=== PATIENT | female | born 1975 | race Caucasian/White ===

== ENCOUNTER 2018-04-21 00:06 | Emergency (ER) | payer OTHER ==
[2018-04-21] MEDS ORDERED: KETOROLAC TROMETHAMINE INJ/PF 30 MG/1 ML SDV IV ONE (00:45)
[2018-04-21] MEDS ORDERED: ONDANSETRON 4 MG TAB.RAPDIS PO ONE (00:45)
--- NOTE | 2018-04-21 00:47 | ER Document Report ---
ED General - General Chief Complaint: Low Back Pain Stated Complaint: URINARY SYMPTONS Time Seen by Provider: 04/21/18 00:37 Notes: Patient is a 43-year-old female who comes emergency department for chief complaint of flank pain. She states that she has also had chills and sweats, symptoms started about 4-5 days ago and have worsened, now she has pain on both sides of her back. She states this evening she started getting nauseated. She denies vomiting, abdominal pain, dysuria, or any urinary symptoms. She states she has had kidney infections in the past and this feels similar. She states initially she thought it was because she had lifted a keg at work. She denies numbness or incontinence. Only medication she takes his oxybutynin. Drinks occasionally. No surgeries. No medical history reported. Denies history of kidney stones. TRAVEL OUTSIDE OF THE [place] IN LAST 30 DAYS: No - Related Data Allergies/Adverse Reactions: Sulfa (Sulfonamide Antibiotics) Allergy (Verified 04/17/15 11:41) Past Medical History - General Information source: Patient - Social History Smoking Status: Never Smoker Frequency of alcohol use: Occasional Drug Abuse: None Lives with: Family Family History: Reviewed & Not Pertinent Surgical Hx: Negative - Immunizations Hx Diphtheria, Pertussis, Tetanus Vaccination: Yes Review of Systems - Review of Systems Constitutional: No symptoms reported EENT: No symptoms reported Cardiovascular: No symptoms reported Respiratory: No symptoms reported Gastrointestinal: See HPI Genitourinary: See HPI Female Genitourinary: No symptoms reported Musculoskeletal: See HPI Skin: No symptoms reported Hematologic/Lymphatic: No symptoms reported Neurological/Psychological: No symptoms reported Physical Exam - Vital signs Vitals: Temp Pulse Resp BP Pulse Ox 97.9 F 101 H 16 167/93 H 98 04/21/18 00:11 04/21/18 00:11 04/21/18 00:11 04/21/18 00:11 04/21/18 00:11 - Notes Notes: GENERAL: Alert, interacts well. No acute distress. HEAD: Normocephalic, atraumatic. EYES: Pupils equal, round, and reactive to light. Extraocular movements intact. ENT: Oral mucosa moist, tongue midline. NECK: Full range of motion. Supple. Trachea midline. LUNGS: Clear to auscultation bilaterally, no wheezes, rales, or rhonchi. No respiratory distress. HEART: Regular rate and rhythm. No murmur ABDOMEN: Soft, non-tender. Non-distended. Bowel sounds present in all 4 quadrants. EXTREMITIES: Moves all 4 extremities spontaneously. No edema, normal radial and dorsalis pedis pulses bilaterally. No cyanosis. BACK: There is some generalized tenderness in the mid to lower back worse on the left, no midline tenderness, no signs of trauma, no saddle anesthesia, normal distal neurovascular exam. NEUROLOGICAL: Alert and oriented x3. Normal speech. [cranial nerves II through XII grossly intact]. PSYCH: Normal affect, normal mood. SKIN: Warm, dry, normal turgor. No rashes or lesions noted. Course - Re-evaluation Re-evalutation: Examination with possible musculoskeletal source of pain but not definite based on patient's descriptions. She states she thought she had a fever and had chills, felt nauseated. Abdomen is very soft and benign. CBC unremarkable, chemistry shows mild LFT elevation with alk phos elevation, no significant elevation of bilirubin. Discussed with patient, decision was made to perform ultrasound to rule out ductal or gallbladder source of flank pain, ultrasound of the kidneys also performed. Hepatic steatosis noted but no other abnormalities noted. Urinalysis unremarkable. On reevaluation with Toradol and IV fluids patient's symptoms have completely resolved. Based on her workup, examination, I do have low suspicion of obstructive pathology or infectious source. Appears to be musculoskeletal. Patient requesting for the same medication she was given here, given Toradol, Flexeril, work release, discussed return precautions, discussed hepatic steatosis and follow-up. Patient states understanding and agreement. - Vital Signs Vital signs: Temp Pulse Resp BP Pulse Ox 98 F 78 20 158/86 H 98 04/21/18 04:10 04/21/18 04:10 04/21/18 04:10 04/21/18 04:10 04/21/18 04:10 - Laboratory Result Diagrams: 04/21/18 01:15 04/21/18 01:15 Laboratory results interpreted by me: 04/21/18 04/21/18 04/21/18 01:15 01:15 02:15 Lymphocytes % 12.8 L Direct Bilirubin 0.5 H AST 74 H ALT 104 H Alkaline Phosphatase 173 H Urine Blood SMALL H Ur Leukocyte Esterase TRACE H Discharge - Discharge Clinical Impression: Flank pain Condition: Stable Disposition: HOME, SELF-CARE Additional Instructions: Your ultrasound shows hepatic steatosis, fatty infiltration of the liver, as we discussed but no emergent findings. Your remaining workup shows mildly elevated liver enzymes but is otherwise unremarkable. Your examination and workup are most consistent with muscular strain and spasm of your back, apply heat to the area, take Toradol for pain/inflammation, take the muscle relaxer as prescribed (can be sedating), and rest your back. Follow-up with primary care for additional evaluation and treatment. I recommend using Tylenol and alcohol with caution because of your elevated liver enzymes, this needs to be rechecked and managed by primary care as well. Return if you worsen including spiking fever, vomiting, severe pain, numbness, or any other concerning or worsening symptoms. Prescriptions: Ketorolac Tromethamine [Toradol 10 mg Tablet] 10 mg PO Q8HP PRN #24 tablet PRN Reason: Cyclobenzaprine HCl [Flexeril 5 mg Tablet] 1 - 2 tab PO TID PRN #15 tablet PRN Reason: Forms: Return to Work Referrals: JOHNATHAN JOHNSON PA [Primary Care Provider] - Follow up as needed
[2018-04-21 01:31] LABS: ABSOLUTE LYMPHOCYTES (AUTO) 1.2 10^3/uL (0.5-4.7); ABSOLUTE MONOCYTES (AUTO) 0.8 10^3/uL (0.1-1.4); ABSOLUTE NEUT (AUTO) 7.6 10^3/uL (1.7-8.2); BASOPHILS % (AUTO) 0.5 % (0-2); EOSINOPHILS % (AUTO) 0.3 % (0-6); HEMATOCRIT 36.2 % (36.0-47.0); HEMOGLOBIN 12.9 g/dL (12.0-15.5); LYMPHOCYTES % (AUTO) 12.8 % (13-45); MEAN CORPUSCULAR HEMOGLOBIN 32.8 pg (27.0-33.4); MEAN CORPUSCULAR HGB CONC 35.8 g/dL (32.0-36.0); MEAN CORPUSCULAR VOLUME 92 fl (80-97); MONOCYTES % (AUTO) 8.7 % (3-13); PLATELET COUNT 289 10^3/uL (150-450); RED BLOOD COUNT 3.94 10^6/uL (3.72-5.28); RED CELL DISTRIBUTION WIDTH 13.7 % (11.5-14.0); SEGMENTED NEUTROPHILS % (AUTO) 77.7 % (42-78); TOTAL CELLS COUNTED % (AUTO) 100 %; WHITE BLOOD COUNT 9.8 10^3/uL (4.0-10.5)
[2018-04-21 01:46] LABS: ALANINE AMINOTRANSFERASE 104 U/L (9-52); ALBUMIN 3.6 g/dL (3.5-5.0); ALKALINE PHOSPHATASE 173 U/L (38-126); ANION GAP 13 (5-19); ASPARTATE AMINO TRANSFERASE 74 U/L (14-36); BILIRUBIN,DIRECT 0.5 mg/dL (0.0-0.4); BILIRUBIN,TOTAL 0.7 mg/dL (0.2-1.3); BLOOD UREA NITROGEN 10 mg/dL (7-20); CALCIUM 9.1 mg/dL (8.4-10.2); CARBON DIOXIDE 23 mmol/L (22-30); CHLORIDE 103 mmol/L (98-107); GLUCOSE 107 mg/dL (75-110); SODIUM 138.7 mmol/L (137-145); TOTAL PROTEIN 6.6 g/dL (6.3-8.2)
[2018-04-21 02:41] LABS: APPEARANCE,URINE CLEAR; BILIRUBIN,URINE NEGATIVE (NEGATIVE); COLOR,URINE STRAW; GLUCOSE, URINE NEGATIVE (NEGATIVE); KETONES,URINE NEGATIVE (NEGATIVE); LEUKOCYTE ESTERASE,URINE TRACE (NEGATIVE); NITRITE,URINE NEGATIVE (NEGATIVE); PROTEIN,URINE NEGATIVE (NEGATIVE); URINE SPECIFIC GRAVITY 1.003; UROBILINOGEN,URINE NEGATIVE mg/dL (<2.0)
--- NOTE | 2018-04-21 03:16 | RADIOLOGY REPORT (SQ) ---
EXAM DESCRIPTION: US RETROPERITONEUM LIMITED COMPLETED DATE/TME: 04/21/2018 02:16 CLINICAL HISTORY: 43 years, Female, bilateral flank pain, eval kidneys COMPARISON: None. LIMITATIONS: None. FINDINGS: 9 cm right kidney, 10 cm left kidney, urinary bladder, demonstrated bilateral ureteral jet flow appear of normal size, shape, echotexture, and vascularity. IMPRESSION: Normal renal sonogram.
--- NOTE | 2018-04-21 03:34 | RADIOLOGY REPORT (SQ) ---
EXAM DESCRIPTION: US ABDOMEN LIMITED COMPLETED DATE/TME: 04/21/2018 02:12 CLINICAL HISTORY: 43 years Female, nausea, flank pain, chills, elev. LFT and alk phos Comparison: None. LIMITATIONS: Decompressed gallbladder. FINDINGS: Gallbladder decompressed, negative sonographic Mead's test, moderate hepatic steatosis, a 0.4-cm diameter common bile duct, no intrahepatic ductal dilation, 9-cm right kidney, partially obscured pancreas, visualized vasculature/abdominal aorta, and no significant ascites appear otherwise unremarkable. IMPRESSION: No acute findings. Hepatic steatosis.
[2018-04-21 04:15] VITALS: BP 158/86
== END 2018-04-21 04:10 | disposition home or self-care (01) ==
LOC: ER 00:06
DX: R10.9 Unspecified abdominal pain (principal); K76.0 Fatty (change of) liver, not elsewhere classified; R74.8 Abnormal levels of other serum enzymes; R68.83 Chills (without fever); R61 Generalized hyperhidrosis; M54.9 Dorsalgia, unspecified; R11.0 Nausea; Z79.899 Other long term (current) drug therapy; Z88.2 Allergy status to sulfonamides; Z87.440 Personal history of urinary (tract) infections
CPT/HCPCS: 99284; 96374; 36415; 85025; 81025; 80053; 81001; 76775; 76705; S0119; J1885

== ENCOUNTER 2018-07-13 23:50 | Emergency (ER) | payer OTHER ==
[2018-07-14 00:22] VITALS: BP 149/89
== END 2018-07-14 03:50 | disposition left against medical advice (07) ==
LOC: ER 23:50
DX: Z53.21 Procedure and treatment not carried out due to patient leaving prior to being seen by health care provider (principal)

== ENCOUNTER 2018-07-14 11:53 | Emergency (ER) | payer OTHER ==
[2018-07-14] MEDS ORDERED: CEPHALEXIN 500 MG CAPSULE PO ONE (12:57)
[2018-07-14] MEDS ORDERED: IBUPROFEN 800 MG TABLET PO ONE (12:57)
[2018-07-14] MEDS ORDERED: DIPH/PERTUSS(ACELL)/TETANUS VAC/PF 0.5 ML SYR (>=10YO) IM ONE (12:57)
--- NOTE | 2018-07-14 12:59 | ER Document Report ---
ED Medical Screen (RME) - General Chief Complaint: Laceration Stated Complaint: LACERATION TO FOOT Time Seen by Provider: 07/14/18 12:54 Notes: 43 years old female just prior to arrival stepped on a piece of glass and sustained a laceration over the right sole of the foot. TRAVEL OUTSIDE OF THE [place] IN LAST 30 DAYS: No - Related Data Allergies/Adverse Reactions: Sulfa (Sulfonamide Antibiotics) Allergy (Verified 07/13/18 23:53) Past Medical History Renal/ Medical History: Denies: Hx Peritoneal Dialysis - Immunizations Hx Diphtheria, Pertussis, Tetanus Vaccination: Yes Doctor's Discharge - Discharge Referrals: NETO GUERRA MD [Primary Care Provider] - Follow up as needed
[2018-07-14 13:04] VITALS: BP 146/98
--- NOTE | 2018-07-14 13:47 | RADIOLOGY REPORT (SQ) ---
EXAM DESCRIPTION: FOOT RIGHT COMPLETE COMPLETED DATE/TIME: 07/14/2018 1:33 pm REASON FOR STUDY: Foot injury/foreign body COMPARISON: None. NUMBER OF VIEWS: Three views. TECHNIQUE: AP, lateral and oblique radiographic images acquired of the right foot. LIMITATIONS: None. FINDINGS: MINERALIZATION: Normal. BONES: No fracture or dislocation. Prominent plantar calcaneal spur. JOINTS: No effusions. SOFT TISSUES: No foreign body is seen. OTHER: No other significant finding. IMPRESSION: No foreign body. Calcaneal spur. TECHNICAL DOCUMENTATION: JOB ID: [id number] [employer]- All Rights Reserved Reading location - IP/workstation name: [email or web address]
[2018-07-14] MEDS ORDERED: LIDOCAINE 1%/EPINEPHRINE INJ 20 ML VIAL INJ ONE (14:24)
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
[2018-07-14] MEDS ORDERED: HYDROCODONE/ACETAMINOPHEN 5-325 MG (6 TAB/ER DISP) PO PRN (15:12)
== END 2018-07-14 15:48 | disposition home or self-care (01) ==
LOC: ER 11:53
PROC: 0HQMXZZ Repair Right Foot Skin, External Approach (ICD-10-PCS; principal; 2018-07-14)
DX: S91.311A Laceration without foreign body, right foot, initial encounter (principal); W25.XXXA Contact with sharp glass, initial encounter
CPT/HCPCS: 99283; 90471; 73630; 90715; 12002; J3490

== ENCOUNTER 2018-12-16 16:20 | Emergency (ER) | payer OTHER ==
--- NOTE | 2018-12-16 18:32 | ER Document Report ---
ED Medical Screen (RME) - General Chief Complaint: Abdominal Pain Stated Complaint: FLU LIKE SYMPTOMS Time Seen by Provider: 12/16/18 18:14 Primary Care Provider: NETO GUERRA MD [Primary Care Provider] - Follow up as needed Mode of Arrival: Ambulatory Information source: Patient Notes: Patient is a 43-year-old female who presents to the emergency department with complaints of fever, back pain, abdominal pain and all of her body aches. Patient reports this is been ongoing for approximately 2 days. Patient denies any urinary symptoms, vomiting or diarrhea. Patient reports currently pain free as she took ibuprofen prior to arrival. Exam: No CVA tenderness. Abdomen soft, nontender with no guarding or rebound. I have greeted and performed a rapid initial assessment of this patient. A comprehensive ED assessment and evaluation of the patient, analysis of test results and completion of the medical decision making process will be conducted by additional ED providers. Dictation of this chart was performed using voice recognition software; therefore, there may be some unintended grammatical errors. TRAVEL OUTSIDE OF THE [place] IN LAST 30 DAYS: No - Related Data Allergies/Adverse Reactions: Sulfa (Sulfonamide Antibiotics) Allergy (Verified 07/13/18 23:53) Past Medical History - Social History Chew tobacco use (# tins/day): No Frequency of alcohol use: None Drug Abuse: None Renal/ Medical History: Denies: Hx Peritoneal Dialysis Past Surgical History: Reports: Hx Abdominal Surgery - abdominoplasty, Hx Breast Surgery - Augmentation - Immunizations Hx Diphtheria, Pertussis, Tetanus Vaccination: Yes Physical Exam - Vital signs Vitals: Temp Pulse Resp BP Pulse Ox 99.6 F 116 H 16 125/70 100 12/16/18 16:34 12/16/18 16:34 12/16/18 16:34 12/16/18 16:34 12/16/18 16:34 Course - Vital Signs Vital signs: Temp Pulse Resp BP Pulse Ox 99.6 F 116 H 16 125/70 100 12/16/18 16:34 12/16/18 16:34 12/16/18 16:34 12/16/18 16:34 12/16/18 16:34 Doctor's Discharge - Discharge Referrals: NETO GUERRA MD [Primary Care Provider] - Follow up as needed
[2018-12-16 19:15] LABS: ABSOLUTE LYMPHOCYTES (AUTO) 0.9 10^3/uL (0.5-4.7); ABSOLUTE MONOCYTES (AUTO) 0.7 10^3/uL (0.1-1.4); BASOPHILS % (AUTO) 0.3 % (0-2); EOSINOPHILS % (AUTO) 0.1 % (0-6); HEMATOCRIT 40.9 % (36.0-47.0); HEMOGLOBIN 14.1 g/dL (12.0-15.5); LYMPHOCYTES % (AUTO) 8.4 % (13-45); MEAN CORPUSCULAR HEMOGLOBIN 32.5 pg (27.0-33.4); MEAN CORPUSCULAR HGB CONC 34.4 g/dL (32.0-36.0); MEAN CORPUSCULAR VOLUME 95 fl (80-97); MONOCYTES % (AUTO) 6.6 % (3-13); PLATELET COUNT 275 10^3/uL (150-450); RED BLOOD COUNT 4.33 10^6/uL (3.72-5.28); RED CELL DISTRIBUTION WIDTH 12.8 % (11.5-14.0); SEGMENTED NEUTROPHILS % (AUTO) 84.6 % (42-78); TOTAL CELLS COUNTED % (AUTO) 100 %; WHITE BLOOD COUNT 10.6 10^3/uL (4.0-10.5)
[2018-12-16 19:39] LABS: ALANINE AMINOTRANSFERASE 48 U/L (9-52); ALKALINE PHOSPHATASE 133 U/L (38-126); ANION GAP 9 (5-19); ASPARTATE AMINO TRANSFERASE 51 U/L (14-36); BILIRUBIN,DIRECT 0.3 mg/dL (0.0-0.4); BILIRUBIN,TOTAL 0.7 mg/dL (0.2-1.3); BLOOD UREA NITROGEN 7 mg/dL (7-20); CALCIUM 8.7 mg/dL (8.4-10.2); CARBON DIOXIDE 25 mmol/L (22-30); CHLORIDE 102 mmol/L (98-107); GLUCOSE 111 mg/dL (75-110); POTASSIUM 4.1 mmol/L (3.6-5.0); SODIUM 135.7 mmol/L (137-145)
[2018-12-16 21:32] LABS: APPEARANCE,URINE SLIGHTLY-CLOUDY; BILIRUBIN,URINE NEGATIVE (NEGATIVE); COLOR,URINE YELLOW; GLUCOSE, URINE NEGATIVE (NEGATIVE); KETONES,URINE NEGATIVE (NEGATIVE); LEUKOCYTE ESTERASE,URINE SMALL (NEGATIVE); NITRITE,URINE NEGATIVE (NEGATIVE); PROTEIN,URINE NEGATIVE (NEGATIVE); URINE SPECIFIC GRAVITY 1.005; UROBILINOGEN,URINE NEGATIVE mg/dL (<2.0)
[2018-12-16 21:33] LABS: A TYPE INFLUENZA AG NEGATIVE (NEGATIVE); B INFLUENZA AG NEGATIVE (NEGATIVE)
[2018-12-16] MEDS ORDERED: CEFTRIAXONE INJ 1000 MG VIAL IM ONE (23:09)
[2018-12-16] MEDS ORDERED: LIDOCAINE 1% INJ-PF (10 MG/ML) 30 ML SDV NEB ONE (23:09)
[2018-12-16] MEDS ORDERED: HYDROCODONE/ACETAMINOPHEN 5-325 MG TABLET PO ONE (23:09)
--- NOTE | 2018-12-16 23:12 | ER Document Report ---
ED General - General Chief Complaint: Abdominal Pain Stated Complaint: FLU LIKE SYMPTOMS Time Seen by Provider: 12/16/18 18:14 Primary Care Provider: NETO GUERRA MD [Primary Care Provider] - Follow up as needed Mode of Arrival: Ambulatory Information source: Patient TRAVEL OUTSIDE OF THE [place] IN LAST 30 DAYS: No - HPI Patient complains to provider of: Back pain, flulike symptoms Onset: Other - 4 days ago Onset/Duration: Gradual Quality of pain: Sharp Severity: Moderate Associated symptoms: Body/muscle aches, Chills, Fever. denies: Nausea, Vomiting Exacerbated by: Denies Relieved by: Denies Similar symptoms previously: No Recently seen / treated by doctor: No Notes: 43-year-old female coming in today chief complaint of back pain, fevers, chills, and malaise. No vomiting or nausea. No diarrhea. - Related Data Allergies/Adverse Reactions: Sulfa (Sulfonamide Antibiotics) Allergy (Verified 07/13/18 23:53) Past Medical History - General Information source: Patient - Social History Smoking Status: Never Smoker Chew tobacco use (# tins/day): No Frequency of alcohol use: None Drug Abuse: None Family History: Reviewed & Not Pertinent Patient has suicidal ideation: No Patient has homicidal ideation: No Renal/ Medical History: Denies: Hx Peritoneal Dialysis Past Surgical History: Reports: Hx Abdominal Surgery - abdominoplasty, Hx Breast Surgery - Augmentation - Immunizations Hx Diphtheria, Pertussis, Tetanus Vaccination: Yes Review of Systems - Review of Systems Notes: Constitutional: FEVERS AND CHILLS EENT: No eye redness. No eye pain. No ear pain. No sore throat. Cardiovascular: No chest pain. No palpitations. Respiratory: No cough. No shortness of breath. No respiratory distress. Gastrointestinal: No abdominal pain. No nausea, vomiting, or diarrhea. Left CVA tenderness Genitourinary: Atraumatic. No lesions. No pain. No discharge. Musculoskeletal: Atraumatic. No swelling. No deformities. Skin: No rash or lesions. Lymphatic: No swollen lymph nodes. Neurologic: No headache. No syncope. Psychiatric: No suicidal or homicidal ideation. Physical Exam - Vital signs Vitals: Temp Pulse Resp BP Pulse Ox 99.6 F 116 H 16 125/70 100 12/16/18 16:34 12/16/18 16:34 12/16/18 16:34 12/16/18 16:34 12/16/18 16:34 - Notes Notes: General: Well-developed, well-nourished. In no acute distress. Non-toxic appearing. Cardiac: Well-perfused. Regular rate and rhythm. No murmurs, rubs, or gallops. Pulmonary: No respiratory distress. No cyanosis. Bilateral lung fiels are clear to auscultation. Abdominal: Non-distended. Non-rigid. Bowels sounds are present in all four quadrants. No guarding or rebound. HEENT: Head is atraumatic. Conjunctivae not reddened. No tearing. PERRL. EOMI. Orbits atraumatic. No periorbital swelling or erythema. Oropharynx is without erythema, swelling, or exudates. Neck: Supple. No adenopathy. No meningismus. Dermatologic: Warm with good turgor. No rash. Atraumatic. Chest: Atraumatic. No chest wall tenderness to palpation. Musculoskeletal: Moves all extremities well. No range of motion deficits. no muscular or joint tenderness. No paraspinal muscle tenderness. no midline spinal tenderness or step-off. Left CVA tenderness Genitourinary: Examination deferred Neurologic: No gross neurologic deficits. Psychiatric: Normal mood. Course - Re-evaluation Re-evalutation: 12/16/18 23:10 Patient's labs are all back. UTI detected on urinalysis. Based on patient's symptoms this sounds strictly like a UTI possible early PYELO. We will give some Rocephin and pain medication here. Discharge home on cephalexin and Oxford. - Vital Signs Vital signs: Temp Pulse Resp BP Pulse Ox 99.6 F 116 H 16 125/70 100 12/16/18 16:34 12/16/18 16:34 12/16/18 16:34 12/16/18 16:34 12/16/18 16:34 - Laboratory Result Diagrams: 12/16/18 18:58 12/16/18 18:58 Laboratory results interpreted by me: 12/16/18 12/16/18 12/16/18 18:58 18:58 18:58 WBC 10.6 H Seg Neutrophils % 84.6 H Lymphocytes % 8.4 L Absolute Neutrophils 9.0 H Sodium 135.7 L Glucose 111 H AST 51 H Alkaline Phosphatase 133 H Urine Blood MODERATE H Ur Leukocyte Esterase SMALL H Discharge - Discharge Clinical Impression: UTI (urinary tract infection) Qualifiers: Urinary tract infection type: site unspecified Hematuria presence: without hematuria Qualified Code(s): N39.0 - Urinary tract infection, site not specified Condition: Good Disposition: HOME, SELF-CARE Instructions: Cephalexin ([facility]), Urinary Tract Infection ([facility]) Prescriptions: Cephalexin Monohydrate [Keflex 500 mg Capsule] 500 mg PO Q6H 7 Days #28 capsule Hydrocodone/Acetaminophen [Oxford 5-325 Tablet] 1 each PO Q6H #10 tablet Referrals: NETO GUERRA MD [Primary Care Provider] - Follow up tomorrow
[2018-12-16 23:32] VITALS: BP 123/68
== END 2018-12-16 23:32 | disposition home or self-care (01) ==
LOC: ER 16:20
DX: N39.0 Urinary tract infection, site not specified (principal); R10.9 Unspecified abdominal pain; M54.9 Dorsalgia, unspecified; M79.10 Myalgia, unspecified site; Z88.2 Allergy status to sulfonamides; R50.9 Fever, unspecified
CPT/HCPCS: 94640; 99283; 96372; 36415; 85025; 80053; 81001; 87804; J3490; J0696